=== PATIENT | male | born 1965 ===

== ENCOUNTER 2017-12-15 17:27 | Day surgery (SDC) | payer BC ==
[2017-12-13 18:49] LABS: ADD MAN DIFF? NO
[2017-12-13 18:54] LABS: BASOPHIL # 0.1 10^3/ul (0.0-0.1); EOSINOPHILS # 0.5 10^3/ul (0.0-0.5); EOSINOPHILS % 8.9 % (0.0-7.0); HEMATOCRIT 34.9 % (42.0-52.0); HEMOGLOBIN 11.6 g/dl (14.0-18.0); LYMPHOCYTES # 1.3 10^3/ul (0.8-2.9); LYMPHOCYTES % 21.2 % (15.0-51.0); MEAN CORPUSCULAR HEMOGLOBIN 32.7 pg (29.0-33.0); MEAN CORPUSCULAR HGB CONC 33.2 g/dl (32.0-37.0); MEAN CORPUSCULAR VOLUME 98.3 fl (82.0-101.0); MONOCYTE # 0.7 10^3/ul (0.3-0.9); MONOCYTES % 10.8 % (0.0-11.0); NEUTROPHIL # 3.5 10^3/ul (1.6-7.5); NEUTROPHILS % 57.8 % (39.0-77.0); PLATELET COUNT 241 10^3/UL (140-415); RED BLOOD COUNT 3.55 10^6/ul (4.70-6.10); RED CELL DISTRIBUTION WIDTH 12.7 % (11.5-14.5)
[2017-12-13 18:58] LABS: ADD UMIC YES; UR ASCORBIC ACID NEGATIVE (NEGATIVE); UR BACTERIA FEW /HPF (NONE SEEN); UR BILIRUBIN (Dip) NEGATIVE (NEGATIVE); UR BLOOD (Dip) NEGATIVE (NEGATIVE); UR CLARITY CLEAR (CLEAR); UR COLOR YELLOW (YELLOW); UR GLUCOSE (Dip) 3+ mg/dL (NEGATIVE); UR KETONES (Dip) NEGATIVE (NEGATIVE); UR LEUKOCYTE ESTERASE (Dip) NEGATIVE Leu/ul (NEGATIVE); UR NITRITE (Dip) NEGATIVE (NEGATIVE); UR RBC 1 /HPF (0-5); UR SPECIFIC GRAVITY (Dip) 1.015 (1.003-1.030); UR SQUAMOUS EPITHELIAL CELL FEW /HPF (FEW); UR TOTAL PROTEIN (Dip) 3+ mg/dl (NEGATIVE); UR UROBILINOGEN (Dip) NEGATIVE (NEGATIVE); UR WBC 7 /HPF (0-5)
[2017-12-13 19:13] LABS: ALANINE AMINOTRANSFERASE 23 IU/L (13-69); ALBUMIN 4.9 g/dl (3.3-4.9); ALBUMIN/GLOBULIN RATIO 1.08; ALKALINE PHOSPHATASE 64 IU/L (42-121); ANION GAP 19 (8-16); ASPARTATE AMINO TRANSFERASE 19 IU/L (15-46); BILIRUBIN,INDIRECT 0.1 mg/dl (0-1.1); BILIRUBIN,TOTAL 0.1 mg/dl (0.2-1.3); CARBON DIOXIDE 35 mmol/L (21-31); CHLORIDE 94 mmol/L (97-110); GLUCOSE 155 mg/dl (70-220); TOTAL PROTEIN 9.4 g/dl (6.1-8.1)
[2017-12-13 19:14] LABS: INR 0.92; PROTIME 12.4 Sec (11.9-14.9)
[2017-12-13 19:15] LABS: PARTIAL THROMBOPLASTIN TIME 33.9 Sec (25.0-35.0)
[2017-12-13 19:18] LABS: HEMOGLOBIN A1C 5.8 % (0-5.9)
[2017-12-13 19:48] LABS: SODIUM 144 mmol/L (135-144)
[2017-12-13 19:50] LABS: BLOOD UREA NITROGEN 21 mg/dl (7-20); CALCIUM 9.6 mg/dl (8.4-10.2); CREATININE 5.32 mg/dl (0.61-1.24); POTASSIUM 3.8 mmol/L (3.5-5.1)
[2017-12-15] MEDS ORDERED: hydrALAzine 20 MG INJ IV (18:30)
[2017-12-15] MEDS ORDERED: MEPERIDINE 25 MG INJ IV (18:30)
[2017-12-15] MEDS ORDERED: DIPHENHYDRAMINE 50 MG INJ IV (18:30)
[2017-12-15] MEDS ORDERED: METOCLOPRAMIDE 10 MG INJ IV (18:30)
[2017-12-15] MEDS ORDERED: HYDROmorphONE (0.2 MG/ML) 10ML SYG IV ×2 (18:30)
[2017-12-15] MEDS ORDERED: ONDANSETRON 4 MG INJ IV (18:30)
[2017-12-15] MEDS ORDERED: LABETALOL HCL 20MG INJ IV (18:30)
[2017-12-15] MEDS ORDERED: EPHEDrine SULFATE 50 MG/5 ML SYG IV (18:30)
[2017-12-15] MEDS ORDERED: OXYCODONE/ACETAMINOPHEN (5/325) TAB PO ×2 (18:30)
[2017-12-15] MEDS ORDERED: FENTAnyl 50 MCG/ML VIAL IV ×3 (18:30)
[2017-12-15 18:41] LABS: ANION GAP 20 (8-16); CARBON DIOXIDE 33 mmol/L (21-31); CHLORIDE 95 mmol/L (97-110); GLUCOSE 103 mg/dl (70-220)
[2017-12-15] MEDS ORDERED: MIDAZOLAM 1 MG/ML 2 ML INJ (18:43)
[2017-12-15] MEDS ORDERED: PROPOFOL 0 ML (18:43)
[2017-12-15 18:50] LABS: SODIUM 144 mmol/L (135-144)
[2017-12-15] MEDS: LIDOCAINE 2% (MDV) 20 ML INJ (18:50)
[2017-12-15] MEDS: BUPIVACAINE 0.25% (MPF) 30 ML INJ (18:50)
[2017-12-15 18:51] LABS: BLOOD UREA NITROGEN 31 mg/dl (7-20); POTASSIUM 4.4 mmol/L (3.5-5.1)
[2017-12-15] MEDS ORDERED: METOCLOPRAMIDE 10 MG INJ (18:51)
[2017-12-15] MEDS ORDERED: KETOROLAC 30 MG INJ (18:51)
[2017-12-15] MEDS ORDERED: CEFAZOLIN 1 GM INJ (18:51)
[2017-12-15] MEDS ORDERED: DEXAMETHASONE 4 MG/ML 1 ML INJ (18:51)
[2017-12-15] MEDS ORDERED: ONDANSETRON 4 MG INJ (18:51)
[2017-12-15 18:54] LABS: CALCIUM 9.4 mg/dl (8.4-10.2); CREATININE 5.93 mg/dl (0.61-1.24)
[2017-12-15] MEDS: POLYMYXIN/BACITRACIN 1L IRRIG (19:01)
== END 2017-12-15 20:10 | disposition home or self-care (01) ==
LOC: SDS 17:27
DX: M86.8X7 Other osteomyelitis, ankle and foot (principal); L97.519 Non-pressure chronic ulcer of other part of right foot with unspecified severity; E11.9 Type 2 diabetes mellitus without complications; E78.5 Hyperlipidemia, unspecified; I12.0 Hypertensive chronic kidney disease with stage 5 chronic kidney disease or end stage renal disease; N18.6 End stage renal disease; Z99.2 Dependence on renal dialysis
CPT/HCPCS: 28173; 71046; 80048; 80053; 81001; 82962; 83036; 85025; 85610; 85730; 87070; 88304; 88311; 93005